=== PATIENT | female | born 1995 | race American Indian/Alaskan Native ===

== ENCOUNTER 2019-09-14 12:27 | Emergency (ER) | payer MEDICAID, OTHER ==
[2019-09-14 12:58] VITALS: BP 105/66
== END 2019-09-14 14:38 | disposition left against medical advice (07) ==
LOC: ED 12:27
DX: M54.9 Dorsalgia, unspecified (principal); Z53.21 Procedure and treatment not carried out due to patient leaving prior to being seen by health care provider